=== PATIENT | female | born 1985 | race African-American/Black ===

== ENCOUNTER 2017-04-05 07:51 | Emergency (ER) | payer MEDICARE ==
[~2017-04-05] VITALS: Ht 165.1 cm; Wt 64.0 kg
[2017-04-05] MEDS ORDERED: ALBU2.5V13 NEB (07:55)
[2017-04-05] MEDS ORDERED: ACETAMINOPHEN 500MG TABLET PO ONE (09:00)
[2017-04-05] MEDS ORDERED: LORAZEPAM 0.5MG TABLET PO ONE (09:00)
[2017-04-05] MEDS ORDERED: BACITRACIN ZINC OINT UDPKT TOP ONE (10:00)
[2017-04-05 10:36] VITALS: BP 91/50
== END 2017-04-05 11:44 | disposition home or self-care (01) ==
LOC: ER 08:01
DX: S80.212A Abrasion, left knee, initial encounter (principal); M25.512 Pain in left shoulder; M54.2 Cervicalgia; M79.662 Pain in left lower leg; J45.909 Unspecified asthma, uncomplicated; Z88.6 Allergy status to analgesic agent; Y04.0XXA Assault by unarmed brawl or fight, initial encounter; Y93.89 Activity, other specified; Y92.009 Unspecified place in unspecified non-institutional (private) residence as the place of occurrence of the external cause; Y99.8 Other external cause status
CPT/HCPCS: 72125; 73030; 73562; 73590; 81025; 99284; Z7610; L0172